=== PATIENT | female | born 1985 | race African-American/Black ===

== ENCOUNTER 2016-07-06 11:23 | Emergency (ER) | payer OTHER ==
[2016-07-06 11:31] VITALS: TEMP 97.7; BMI 20.9
[2016-07-06] MEDS ORDERED: ONDANSETRON 4 MG TABLET PO ONE (11:55)
[2016-07-06] MEDS ORDERED: IBUPROFEN 400 MG TABLET (FP) PO ONE ×2 (11:55→12:06)
[2016-07-06] MEDS ORDERED: SODIUM CHLORIDE 1,000 ML IV STA (11:57)
--- NOTE | 2016-07-06 11:57 | PDOC ---
History of Present Illness - General Chief Complaint: Syncope/Near Syncope Stated Complaint: NAUSEA, SYNCOPE, VOMITING Time Seen by Provider: 07/06/16 11:48 History Source: Patient - History of Present Illness Presenting Symptoms: Abdominal Pain, Nausea Timing/Duration: reports: intermittent Past History - Past Medical History Allergies/Adverse Reactions: Allergies Allergy/AdvReac Type Severity Reaction Status Date / Time amoxicillin [Amoxicillin] Allergy Verified 07/06/16 11:26 Penicillins Allergy Verified 07/06/16 11:26 Home Medications: Ambulatory Orders No Home Medications 0 dose .ROUTE UTDICT 10/31/13 Cardiac Disorders: Yes (syncope) Suicide Attempt (Hx): No - Surgical History Appendectomy: Yes - Psycho/Social/Smoking Cessation Hx Anxiety: No Suicidal Ideation: No Smoking Status: No Smoking History: Former smoker Have you smoked in the past 12 months: No Number of Cigarettes Smoked Daily: 0 Information on smoking cessation initiated: No Hx Alcohol Use: No Drug/Substance Use Hx: No Substance Use Type: None Review of Systems - Review of Systems Constitutional: No: Chills, Fever HEENTM: No: Blurred Vision Respiratory: No: Shortness of Breath Cardiac (ROS): Yes: Lightheadedness, Syncope. No: Chest Pain, Palpitations ABD/GI: Yes: Nausea, Abdominal cramping Neurological: Yes: Dizziness. No: Headache *Physical Exam - Vital Signs Last Vital Signs Temp Pulse Resp BP Pulse Ox 97.7 F 77 18 115/62 99 07/06/16 11:27 07/06/16 14:05 07/06/16 14:05 07/06/16 14:05 07/06/16 14:05 - Physical Exam Comments: 07/06/16 12:12 Appears mildly uncomfortable in ED General Appearance: Yes: Appropriately Dressed HEENT: positive: Normal Voice Neck: positive: Supple Respiratory/Chest: positive: Lungs Clear, Normal Breath Sounds. negative: Respiratory Distress Cardiovascular: positive: Regular Rate, S1, S2 Gastrointestinal/Abdominal: positive: Soft Integumentary: positive: Dry, Warm Neurologic: positive: Fully Oriented, Alert, Normal Mood/Affect, Motor Strength 5/5. negative: Facial Droop, Confused Heart Score/ECG Review - ECG Intrepretation Comment:: 07/06/16 13:17 Twelve-lead EKG was performed and reviewed by me. There is normal sinus rhythm with a normal rate. The axis is normal. The intervals are normal. There are no ST or T wave abnormalities. Impression: Normal twelve-lead EKG ED Treatment Course - LABORATORY CBC & Chemistry Diagram: 07/06/16 11:45 07/06/16 11:45 - ADDITIONAL ORDERS Additional order review: Laboratory Results 07/06/16 07/06/16 12:00 11:45 Sodium 142 Potassium 4.1 Chloride 108 H Carbon Dioxide 26 Anion Gap 8 BUN 10 D Creatinine 0.6 D Creat Clearance w eGFR > 60 Random Glucose 102 Calcium 8.3 L Total Bilirubin 0.4 AST 7 L D ALT 11 L D Alkaline Phosphatase 45 Total Protein 6.7 Albumin 3.7 Urine Color Yellow Urine Appearance Clear Urine pH 6.0 Ur Specific [place] 1.025 Urine Protein Negative Urine Glucose (UA) Negative Urine Ketones Negative Urine Blood 1+ H Urine Nitrite Negative Urine Bilirubin Negative Urine Urobilinogen 2.0 e.u/dl H Ur Leukocyte Esterase Negative Urine RBC 1 Urine WBC 1 Ur Epithelial Cells Rare Urine Bacteria Rare Hyaline Casts 11 Urine Mucus Many Urine HCG, Qual Negative 07/06/16 11:45 RBC 3.67 MCV 94.3 MCHC 32.6 RDW 13.6 MPV 8.4 Neutrophils % 66.7 D Lymphocytes % 23.7 D Monocytes % 6.8 Eosinophils % 2.1 D Basophils % 0.7 - RADIOLOGY Radiology Studies Ordered: Category Date Time Status HEAD CT WITHOUT CONTRAST [CT] Stat CT Scan 07/06/16 11:57 Completed FINGER(S) RIGHT [RAD] Stat Radiology 07/06/16 11:55 Completed - Medications Given in the ED: ED Medications Discontinued Medications Generic Name Dose Route Start Last Admin Trade Name Freq PRN Reason Stop Dose Admin Sodium Chloride 1,000 mls @ 1,000 mls/hr 07/06/16 11:57 07/06/16 12:19 Normal Saline - IV 07/06/16 12:56 1,000 mls/hr ASDIR STA Administration Ibuprofen 800 mg 07/06/16 11:55 07/06/16 12:19 Motrin - PO 07/06/16 11:56 800 mg ONCE ONE Administration Ondansetron HCl 4 mg 07/06/16 11:55 07/06/16 12:19 Zofran - PO 07/06/16 11:56 4 mg ONCE ONE Administration Medical Decision Making - Medical Decision Making 07/06/16 11:56 30-year-old female, endorses history of recurrent syncope, here with multiple syncopal episodes over the past 3 days. Patient states 3 days ago while home, she became dizzy and passed out and woke up on the floor. Did not not have any headache immediately after event but does report R 5th finger pain and swelling. States she stayed in bed all day yesterday and felt better, but this a.m. while standing outdoors, pt again became lightheaded and passed out and again awoke on the floor. States event this am was witnessed by bystanders and no seizure-like activities reported. 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 Pt states she noticed that symptoms occur usually around the time of her menses and states she suffers form very painful periods. Reports that menses came around 5am today and now complaining of her usual lower abdominal cramping and nausea. Pt denies vertigo, visual changes, slurred speech, [place] or focal weakness. No CP or SOB See exam Recurrent syncope Usually triggered by menses Seen in outside EDs No neuro/cards w/u in past Stable in ED w/ unremarkable exam ?vasovagal, r/o orthostasis, unlikely cardiogenic -ekg -labs -pain control -zofran 07/06/16 12:08 07/06/16 13:16 07/06/16 14:05 Labs/ekg/CT head unremarkable. Pt stable in ED. Case d/w ED attg and decision was made to admit to obs for cards and neuro w/u given no workup in past and multiple syncopal events in 3 days w/ injury 07/06/16 14:07 07/06/16 14:30 Patient refusing to be admitted. States she wants to sign out AGAINST MEDICAL ADVICE. Medical risks explained to patient, but still refusing admission. States she will walk into her PMDs office tomorrow. Patient understands that she can return at any point to continue evaluation. Given finger splint and orthopedic follow-up for finger fracture. Copy of labs also given to pt 07/06/16 14:37 *DC/Admit/Observation/Transfer Diagnosis at time of Disposition: Finger fracture, right Syncope Qualifiers: Syncope type: vasovagal syncope Qualified Code(s): R55 - Syncope and collapse - Discharge Dispostion Disposition: AGAINST MEDICAL ADVICE Condition at time of disposition: Stable - Referrals Referrals: Caren Goff [Other] Kishan Newman MD [Staff Physician] - - Patient Instructions Printed Discharge Instructions: DI for Syncope in Adults (Fainting), Finger Fracture Additional Instructions: Please follow-up with your PMD tomorrow. You can return to ER at any point to continue evaluation. Regarding her finger fracture. Keep splint in place take Motrin as needed and follow-up with orthopedic in 1-2 weeks
[2016-07-06] MEDS ORDERED: ONDANSETRON 4 MG/2 ML VIAL ONE (12:06)
[2016-07-06 12:29] LABS: BASOPHIL 0.7 % (0-2.0); EOSINOPHIL 2.1 % (0-4.5); MCH 30.7 pg (25.7-33.7); MCHC 32.6 g/dl (32.0-36.0); MEAN CELL VOLUME 94.3 fl (80-96); MEAN PLT VOLUME 8.4 fl (7.5-11.1); NEUTROPHILS 66.7 % (42.8-82.8); PLATELET COUNT 246 K/MM3 (134-434); RDW 13.6 % (11.6-15.6); WHITE BLOOD COUNT 6.5 K/mm3 (4.0-10.0)
[2016-07-06 12:36] LABS: URINE APPEARANCE CLEAR; URINE BILIRUBIN NEGATIVE (NEGATIVE); URINE COLOR YELLOW; URINE GLUCOSE (UA) NEGATIVE (NEGATIVE); URINE KETONE NEGATIVE (NEGATIVE); URINE LEUK ESTERASE NEGATIVE (NEGATIVE); URINE NITRITE NEGATIVE (NEGATIVE); URINE PROTEIN NEGATIVE (NEGATIVE); URINE UROBILINOGEN 2.0 E.U/dl E.U./dl (0.2-1.0)
[2016-07-06 12:37] LABS: URINE BLOOD 1+ (NEGATIVE)
[2016-07-06 12:41] LABS: ALBUMIN 3.7 g/dl (3.4-5.0); ALK PHOS 45 U/L (45-117); ANION GAP 8 (8-16); BILIRUBIN,TOTAL 0.4 mg/dL (0.2-1.0); CALCIUM 8.3 mg/dL (8.5-10.1); CO2 26 mmol/L (21-32); CREATININE 0.6 mg/dL (0.55-1.02); GLUCOSE,RANDOM 102 mg/dL (74-106); SGOT/AST 7 U/L (15-37); SGPT/ALT 11 U/L (12-78); TOT PROT 6.7 g/dl (6.4-8.2)
[2016-07-06 12:47] LABS: URINE BACTERIA RARE /hpf (NONE SEEN); URINE HYALINE CAST 11 /lpf; URINE MUCUS MANY; URINE RBC 1 /hpf (0-3); URINE WBC 1 /hpf (3-5)
[2016-07-06 14:06] VITALS: BP 115/62; PULSE 77
--- NOTE | 2016-07-06 14:42 | PDOC ---
*Physical Exam - Vital Signs Last Vital Signs Temp Pulse Resp BP Pulse Ox 97.7 F 77 18 115/62 99 07/06/16 11:27 07/06/16 14:05 07/06/16 14:05 07/06/16 14:05 07/06/16 14:05 ED Treatment Course - LABORATORY CBC & Chemistry Diagram: 07/06/16 11:45 07/06/16 11:45 - ADDITIONAL ORDERS Additional order review: Laboratory Results 07/06/16 07/06/16 12:00 11:45 Sodium 142 Potassium 4.1 Chloride 108 H Carbon Dioxide 26 Anion Gap 8 BUN 10 D Creatinine 0.6 D Creat Clearance w eGFR > 60 Random Glucose 102 Calcium 8.3 L Total Bilirubin 0.4 AST 7 L D ALT 11 L D Alkaline Phosphatase 45 Total Protein 6.7 Albumin 3.7 Urine Color Yellow Urine Appearance Clear Urine pH 6.0 Ur Specific [place] 1.025 Urine Protein Negative Urine Glucose (UA) Negative Urine Ketones Negative Urine Blood 1+ H Urine Nitrite Negative Urine Bilirubin Negative Urine Urobilinogen 2.0 e.u/dl H Ur Leukocyte Esterase Negative Urine RBC 1 Urine WBC 1 Ur Epithelial Cells Rare Urine Bacteria Rare Hyaline Casts 11 Urine Mucus Many Urine HCG, Qual Negative 07/06/16 11:45 RBC 3.67 MCV 94.3 MCHC 32.6 RDW 13.6 MPV 8.4 Neutrophils % 66.7 D Lymphocytes % 23.7 D Monocytes % 6.8 Eosinophils % 2.1 D Basophils % 0.7 - RADIOLOGY Radiology Studies Ordered: Category Date Time Status HEAD CT WITHOUT CONTRAST [CT] Stat CT Scan 07/06/16 11:57 Completed FINGER(S) RIGHT [RAD] Stat Radiology 07/06/16 11:55 Completed - Medications Given in the ED: ED Medications Discontinued Medications Generic Name Dose Route Start Last Admin Trade Name Freq PRN Reason Stop Dose Admin Sodium Chloride 1,000 mls @ 1,000 mls/hr 07/06/16 11:57 07/06/16 12:19 Normal Saline - IV 07/06/16 12:56 1,000 mls/hr ASDIR STA Administration Ibuprofen 800 mg 07/06/16 11:55 07/06/16 12:19 Motrin - PO 07/06/16 11:56 800 mg ONCE ONE Administration Ondansetron HCl 4 mg 07/06/16 11:55 07/06/16 12:19 Zofran - PO 07/06/16 11:56 4 mg ONCE ONE Administration *DC/Admit/Observation/Transfer Diagnosis at time of Disposition: Finger fracture, right Syncope Qualifiers: Syncope type: vasovagal syncope Qualified Code(s): R55 - Syncope and collapse - Discharge Dispostion Disposition: AGAINST MEDICAL ADVICE Condition at time of disposition: Stable - Referrals Referrals: Caren Goff [Other] Kishan Newman MD [Staff Physician] - - Patient Instructions Printed Discharge Instructions: DI for Syncope in Adults (Fainting), Finger Fracture Additional Instructions: Please follow-up with your PMD tomorrow. You can return to ER at any point to continue evaluation. Regarding her finger fracture. Keep splint in place take Motrin as needed and follow-up with orthopedic in 1-2 weeks - Post Discharge Activity Work/School Note: Back to School
--- NOTE | 2016-07-07 11:02 | EKG ---
Test Reason : Blood Pressure : / mmHG Vent. Rate : 065 BPM Atrial Rate : 065 BPM P-R Int : 134 ms QRS Dur : 078 ms QT Int : 376 ms P-R-T Axes : 034 002 029 degrees QTc Int : 391 ms NORMAL SINUS RHYTHM NORMAL ECG WHEN COMPARED WITH ECG OF 09-JUL-2011 05:34, VENT. RATE HAS DECREASED BY 45 BPM T WAVE VARIATION Confirmed by LUCY VAZQUEZ MD ([id number]) on 07/07/2016 11:02:19 AM Referred By: Confirmed By:LUCY VAZQUEZ MD
== END 2016-07-06 14:45 | disposition left against medical advice (07) ==
LOC: JER 11:23
PROC: 2W3JX1Z Immobilization of Right Finger using Splint (ICD-10-PCS; principal; 2016-07-06)
DX: R55 Syncope and collapse (principal); S62.636A Displaced fracture of distal phalanx of right little finger, initial encounter for closed fracture; W18.30XA Fall on same level, unspecified, initial encounter; Y93.9 Activity, unspecified; Y92.018 Other place in single-family (private) house as the place of occurrence of the external cause
CPT/HCPCS: 29130; 36415; 70450-TC; 73140-TC-RT; 80053; 81003; 81015; 84703; 85025; 93005; 93010; 99285-25

== ENCOUNTER 2016-09-06 21:03 | Emergency (ER) | payer OTHER ==
[2016-09-06 21:18] VITALS: BP 138/95; PULSE 74; TEMP 98.8; BMI 20.9
--- NOTE | 2016-09-06 21:27 | PDOC ---
History of Present Illness - General History Source: Patient Exam Limitations: No Limitations - History of Present Illness Initial Comments: 09/06/16 21:37 The patient is a 30 year old female, with no significant past medical history, who presents to the emergency department with complains of prolonged menstrual bleeding since August. The patient reports that she has recently taken 4 tests that all came back positive. The patient notes that she got her period on August 26 and the bleeding has been persistent since. She notes that the blood is brown in color. She states that her period is normally regular. She denies having any pain. Allergies: amoxicillin, penicillins Past surgical history: appendectomy Social history: Former smoker, social alcohol use <Moraima Fuentes - Last Filed: 09/06/16 21:37> <Jairon Nolan - Last Filed: 09/07/16 03:34> - General Chief Complaint: Vaginal Bleeding Stated Complaint: PROLONGED MENSTRUAL BLEEDING Time Seen by Provider: 09/06/16 21:27 Past History <Moraima Fuentes - Last Filed: 09/06/16 21:37> - Past Medical History Cardiac Disorders: Yes (syncope) Suicide Attempt (Hx): No - Surgical History Appendectomy: Yes - Reproductive History Is Patient Now?: Yes - Psycho/Social/Smoking Cessation Hx Anxiety: No Suicidal Ideation: No Smoking Status: No Smoking History: Former smoker Have you smoked in the past 12 months: No Number of Cigarettes Smoked Daily: 0 Information on smoking cessation initiated: No Hx Alcohol Use: Yes (SOCIAL) Drug/Substance Use Hx: No Substance Use Type: None <Jairon Nolan - Last Filed: 09/07/16 03:34> - Past Medical History Allergies/Adverse Reactions: Allergies Allergy/AdvReac Type Severity Reaction Status Date / Time amoxicillin [Amoxicillin] Allergy Verified 07/06/16 11:26 Penicillins Allergy Verified 07/06/16 11:26 Home Medications: Ambulatory Orders No Home Medications 0 dose .ROUTE UTDICT 10/31/13 Vit #108/Iron/FA [ One Tablet] 1 each PO DAILY #30 tablet 09/06 *Physical Exam - Vital Signs Last Vital Signs Temp Pulse Resp BP Pulse Ox 98.8 F 74 15 138/95 97 09/06/16 21:05 09/06/16 21:05 09/06/16 21:05 09/06/16 21:05 09/06/16 21:05 <Moraima Fuentes - Last Filed: 09/06/16 21:37> - Vital Signs Last Vital Signs Temp Pulse Resp BP Pulse Ox 98.8 F 74 15 138/95 97 09/06/16 21:05 09/06/16 21:05 09/06/16 21:05 09/06/16 21:05 09/06/16 21:05 - Physical Exam General Appearance: Yes: Nourished HEENT: positive: Normal Voice Respiratory/Chest: positive: Lungs Clear, Normal Breath Sounds Cardiovascular: positive: Regular Rate Female Pelvic Exam: positive: normal external exam, cervical os closed, normal size ovaries, other (scant bleeding from os). negative: adnexal tenderness, uterus Lymphatic: negative: Adenopathy Musculoskeletal: positive: Normal Inspection Extremity: positive: Normal Capillary Refill Integumentary: positive: Normal Color Neurologic: positive: Fully Oriented <Jairon Nolan - Last Filed: 09/07/16 03:34> ED Treatment Course - ADDITIONAL ORDERS Additional order review: Laboratory Results 09/06/16 21:21 Urine HCG, Qual Positive <Moraima Fuentes - Last Filed: 09/06/16 21:37> Medical Decision Making - Medical Decision Making 09/07/16 03:32 POCUS: endometrial stripe, CL cyst R ovary, no ff Blood type: O+ a/p early ectopic not ruled out but nothing on hx of pe suggests this has net repairer for fu PNV <Jairon Nolan - Last Filed: 09/07/16 03:34> *DC/Admit/Observation/Transfer - Attestations Scribe Attestion: 09/06/16 21:38 Documentation prepared by CHIOMA Yanes, acting as medical claims manager for Jairon Nolan MD. <Moraima Fuentes - Last Filed: 09/06/16 21:37> <Jairon Nolan - Last Filed: 09/07/16 03:34> Diagnosis at time of Disposition: Threatened miscarriage in early - Discharge Dispostion Disposition: HOME Condition at time of disposition: Good - Prescriptions Prescriptions: Vit #108/Iron/FA [ One Tablet] 1 each PO DAILY #30 tablet - Patient Instructions Printed Discharge Instructions: DI for Threatened Additional Instructions: follow up with your wage hand as soon as possible
== END 2016-09-06 22:02 | disposition home or self-care (01) ==
LOC: FER 21:03
DX: O20.0 Threatened abortion (principal); Z3A.00 Weeks of gestation of pregnancy not specified; Z87.891 Personal history of nicotine dependence
CPT/HCPCS: 84703; 86850; 86900; 86901; 99283-25

== ENCOUNTER 2016-09-11 23:24 | Emergency (ER) | payer OTHER ==
[2016-09-11 23:52] VITALS: BP 138/76; PULSE 77; TEMP 97.4; BMI 25.0
[2016-09-11 23:56] LABS: BASOPHIL 1.1 % (0-2.0); EOSINOPHIL 2.4 % (0-4.5); MCH 29.1 pg (25.7-33.7); MCHC 32.8 g/dl (32.0-36.0); MEAN CELL VOLUME 88.9 fl (80-96); MEAN PLT VOLUME 8.6 fl (7.5-11.1); NEUTROPHILS 49.3 % (42.8-82.8); PLATELET COUNT 252 K/MM3 (134-434); RDW 15.3 % (11.6-15.6); WHITE BLOOD COUNT 6.9 K/mm3 (4.0-10.0)
--- NOTE | 2016-09-11 23:58 | PDOC ---
History of Present Illness - History of Present Illness Initial Comments: 09/12/16 00:24 Patient is a 30 year old female with no significant medical hx who is presenting to the ED with persistent vaginal spotting since 08/27/16. The patient reports passing small amounts of clots over the past few weeks. She recently took a test that was found positive. Several days ago the patient was tested and found to have a beta hCG of 831 and upon repeat went down to 793. Patient also notes having irregular menses. The patient denies any other symptoms including abdominal pain, nausea, vomiting, fever, chills. She came to the ED for further evaluation of her spotting. Patient states she's been seen by multiple doctors, including a visit to [facility] on 09/06, for the same complaint. Allergies: amoxicillin, penicillins Past surgical history: appendectomy Social history: Former smoker, social alcohol use <Cindy Patterson - Last Filed: 09/12/16 02:06> - General History Source: Patient Exam Limitations: No Limitations <Arturo Nelson - Last Filed: 09/12/16 02:09> - General Stated Complaint: VAGINAL BLEEDING/CRAMPS Time Seen by Provider: 09/11/16 23:33 Past History <Cindy Patterson - Last Filed: 09/12/16 02:06> - Past Medical History Cardiac Disorders: Yes (syncope) Suicide Attempt (Hx): No - Surgical History Appendectomy: Yes - Psycho/Social/Smoking Cessation Hx Anxiety: No Suicidal Ideation: No Smoking Status: No Smoking History: Former smoker Have you smoked in the past 12 months: No Number of Cigarettes Smoked Daily: 0 Hx Alcohol Use: Yes (SOCIAL) Drug/Substance Use Hx: No Substance Use Type: None <Arturo Nelson - Last Filed: 09/12/16 02:09> - Past Medical History Allergies/Adverse Reactions: Allergies Allergy/AdvReac Type Severity Reaction Status Date / Time amoxicillin [Amoxicillin] Allergy Verified 09/11/16 23:50 Penicillins Allergy Verified 09/11/16 23:50 Home Medications: Ambulatory Orders Vit #108/Iron/FA [ One Tablet] 1 each PO DAILY #30 tablet 09/06 Review of Systems - Review of Systems Comments:: 09/12/16 00:33 GENERAL/CONSTITUTIONAL: No fever or chills. No weakness. HEAD, EYES, EARS, NOSE AND THROAT: No change in vision. No ear pain or discharge. No sore throat. CARDIOVASCULAR: No chest pain or shortness of breath. RESPIRATORY: No cough, wheezing, or hemoptysis. GASTROINTESTINAL: No nausea, vomiting, diarrhea or constipation. GENITOURINARY: Vaginal spotting. No dysuria, frequency, or change in urination. MUSCULOSKELETAL: No joint or muscle swelling or pain. No neck or back pain. SKIN: No rash NEUROLOGIC: No headache, vertigo, loss of consciousness, or change in strength/ sensation. <Cindy Patterson - Last Filed: 09/12/16 02:06> *Physical Exam - Vital Signs Last Vital Signs Temp Pulse Resp BP Pulse Ox 97.4 F L 77 18 138/76 100 09/11/16 23:51 09/11/16 23:51 09/11/16 23:51 09/11/16 23:51 09/11/16 23:51 - Physical Exam Comments: 09/12/16 00:34 GENERAL: Awake, alert, and fully oriented, in no acute distress HEAD: No signs of trauma EYES: PERRLA, EOMI, sclera anicteric, conjunctiva clear ENT: Auricles normal inspection, hearing grossly normal, nares patent, oropharynx clear without exudates. Moist mucosa NECK: Normal ROM, supple, no lymphadenopathy, JVD, or masses LUNGS: Breath sounds equal, clear to auscultation bilaterally. No wheezes, and no crackles HEART: Regular rate and rhythm, normal S1 and S2, no murmurs, rubs or gallops ABDOMEN: Soft, nontender, normoactive bowel sounds. No guarding, no rebound. No masses EXTREMITIES: Normal range of motion, no edema. No clubbing or cyanosis. No cords, erythema, or tenderness NEUROLOGICAL: Cranial nerves II through XII grossly intact. Normal speech, normal gait SKIN: Warm, Dry, normal turgor, no rashes or lesions noted. ENDOCRINE: No increased thirst. No abnormal weight change. HEMATOLOGIC/LYMPHATIC: No anemia, easy bleeding, or history of blood clots. ALLERGIC/IMMUNOLOGIC: No hives or skin allergy. <Cindy Patterson - Last Filed: 09/12/16 02:06> ED Treatment Course - LABORATORY CBC & Chemistry Diagram: 09/11/16 23:45 09/11/16 23:45 - ADDITIONAL ORDERS Additional order review: 09/11/16 23:45 RBC 4.01 MCV 88.9 MCHC 32.8 RDW 15.3 D MPV 8.6 Neutrophils % 49.3 D Lymphocytes % 36.8 D Monocytes % 10.4 H Eosinophils % 2.4 Basophils % 1.1 - RADIOLOGY Radiograph Interpretation: 09/12/16 02:06 Ortho Tech: (elyse) Report Date: 09/12/2016 00:39:00 Report Status: Preliminary Begin of Report Content Referring Physician: Arturo Nelson Patient Name: Vida Livingston THIS IS A PRELIMINARY REPORT FROM [facility] EXAM: Ultrasound first trimester and pelvic duplex IMAGES: 49 INDICATION: First trimester bleeding. ACG level DXL DATE OF SERVICE: 2016-09-12 00:39:52.0 COMPARISON: none FINDINGS: Ultrasound :Uterus is anteverted and measures 7.0centimeters in length. The endometrium is 3millimeters in thickness which is normal no identified. The right ovary measures 3.8centimeters in length, appears normal and demonstrates normal flow. Left ovary measures 3.4centimeters in length appears normal demonstrates normal flow. There is no significant free fluid. Pelvic duplex: There is normal arterial flow in both ovaries. IMPRESSION: Unremarkable exam without IUP identified. Differential diagnosis includes early normal , miscarriage or ectopic and followup sonography with correlation hCG levels is recommended. THIS DOCUMENT HAS BEEN ELECTRONICALLY SIGNED Micheal Soto MD 09/12/2016 02:02 EMBER Alcaraz Please call [facility] [phone] ([phone]) with questions. End of Report Content <Cindy Patterson - Last Filed: 09/12/16 02:06> - LABORATORY CBC & Chemistry Diagram: 09/11/16 23:45 09/11/16 23:45 - RADIOLOGY Radiology Studies Ordered: Category Date Time Status TRANSVAGINAL US PREG [US] Stat Ultrasound 09/11/16 23:46 Ordered <Arturo Nelson - Last Filed: 09/12/16 02:09> Medical Decision Making - Medical Decision Making 09/11/16 23:52 A portion of this note was documented by scribe services under my direction. I have reviewed the details of the note, within reason, and agree with the documentation with the following case summary and management plan written by me. Patient treated in the ED. Nursing notes are reviewed and incorporated into the medical decision-making. Vital signs reviewed. Peripheral IV access obtained by the nurse, laboratory studies are drawn and sent, reviewed and interpreted by myself. Vital Signs Temp Pulse Resp BP Pulse Ox 97.4 F L 77 18 138/76 100 09/11/16 23:51 09/11/16 23:51 09/11/16 23:51 09/11/16 23:51 09/11/16 23:51 30-year-old female with no medical history, irregular periods, presents with vaginal bleeding since August 27. The patient reports that she has been spotting. She was unclear if this was her irregular.. She had taken a test and she was positive. Patient was having vaginal spotting and was seen at [place] on September 06. She was discharged that time and has had subsequent visits were doctors. Patient several days ago had a beta hCG of 831 and repeat was 793. Patient came in because she is still persistently spotting. Denies any abdominal pain. Reports that a small amounts of clots. Will obtain a repeat beta hcg and transvaginal ultrasound and reassess. 09/12/16 01:39 CBC, BMP 09/11/16 23:45 09/11/16 23:45 CMP Sodium 141 mmol/L (136-145) 09/11/16 23:45 Potassium 4.1 mmol/L (3.5-5.1) 09/11/16 23:45 Chloride 103 mmol/L (98-107) 09/11/16 23:45 Carbon Dioxide 27 mmol/L (21-32) 09/11/16 23:45 Anion Gap 11 (8-16) 09/11/16 23:45 BUN 10 mg/dL (7-18) 09/11/16 23:45 Creatinine 0.7 mg/dL (0.55-1.02) 09/11/16 23:45 Creat Clearance w eGFR > 60 (>60) 09/11/16 23:45 Random Glucose 80 mg/dL (74-106) D 09/11/16 23:45 Calcium 8.7 mg/dL (8.5-10.1) 09/11/16 23:45 Total Bilirubin 0.5 mg/dL (0.2-1.0) D 09/11/16 23:45 AST 9 U/L (15-37) L D 09/11/16 23:45 ALT 15 U/L (12-78) D 09/11/16 23:45 Alkaline Phosphatase 50 U/L (45-117) 09/11/16 23:45 Total Protein 7.7 g/dl (6.4-8.2) 09/11/16 23:45 Albumin 4.1 g/dl (3.4-5.0) 09/11/16 23:45 Beta HCG, Quant 540.1 mIU/ml 09/11/16 23:45 The beta is downtrending. 09/12/16 01:39 Blood type is Rh positive. Pt is likely with miscarriage. 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 09/12/16 02:00 Pt reports that she had an ultrasound earlier this week (a 2nd one, that again that didn't show anything). She states that her ride is leaving and would like to call back for her results. I had informed her that she can follow up and call back tomorrow. Return precautions given including worsening bleed. Given that the bleeding has occurred since end of August, with a downtrending beta HCG, will allow her to go home and call back for the results. Likely discharge diagnosis: miscarriage. I discussed the physical exam findings, ancillary test results and final diagnoses with the patient. I answered all of the patient's questions. The patient was satisfied with the care received and felt comfortable with the discharge plan and treatment plan. The patient will call their primary care physician within 24 hours to arrange follow-up and will return to the Emergency Department with any new, persistant or worsening symptoms. 09/12/16 02:08 I was able to inform the patient of the results of the ultrasound. No identifiable of IUP (which we surmised) <Arturo Nelson - Last Filed: 09/12/16 02:09> *DC/Admit/Observation/Transfer - Attestations Scribe Attestion: 09/12/16 00:34 Documentation prepared by Cindy Patterson, acting as medical delivery technician for Arturo Nelson MD. <Cindy Patterson - Last Filed: 09/12/16 02:06> - Discharge Dispostion Admit: No <Arturo Nelson - Last Filed: 09/12/16 02:09> Diagnosis at time of Disposition: Miscarriage - Discharge Dispostion Disposition: HOME Condition at time of disposition: Stable - Referrals Referrals: Roselyn Parks MD [Staff Physician] - Franky London MD [Staff Physician] - Flo Escobar MD [Staff Physician] - - Patient Instructions Printed Discharge Instructions: DI for Vaginal Bleeding During Additional Instructions: Your beta HCG is 540 today. Please call back tomorrow for the results of your ultrasound. Call [phone] option 1. Please follow up with your thermal cutting machine operator doctor. If you have uncontrollable bleeding, please return to the ER for further evaluation.
[2016-09-12 00:26] LABS: ALBUMIN 4.1 g/dl (3.4-5.0); ANION GAP 11 (8-16); CALCIUM 8.7 mg/dL (8.5-10.1); CO2 27 mmol/L (21-32); COCKROFT - GAULT 128.5115; CREATININE 0.7 mg/dL (0.55-1.02); GLUCOSE,RANDOM 80 mg/dL (74-106); SGOT/AST 9 U/L (15-37); SGPT/ALT 15 U/L (12-78)
[2016-09-12 00:30] LABS: ALK PHOS 50 U/L (45-117); BILIRUBIN,TOTAL 0.5 mg/dL (0.2-1.0); TOT PROT 7.7 g/dl (6.4-8.2)
== END 2016-09-12 02:15 | disposition home or self-care (01) ==
LOC: JER 23:24
DX: O02.1 Missed abortion (principal); Z3A.01 Less than 8 weeks gestation of pregnancy
CPT/HCPCS: 36415; 76817-TC; 80053; 84702; 85025; 86850; 86900; 86901; 99282-25

== ENCOUNTER 2017-03-14 17:46 | Emergency (ER) | payer OTHER ==
[2017-03-14 17:51] VITALS: TEMP 97.6; BMI 20.9
--- NOTE | 2017-03-14 18:23 | PDOC ---
History of Present Illness - General Chief Complaint: Vaginal Bleeding Stated Complaint: VAGINAL BLEEDING Time Seen by Provider: 03/14/17 17:59 - History of Present Illness Initial Comments: 03/15/17 01:14 31F found on last admission 2 days ago, comes back with brown discharge and spotting and faint abdominal paint. last menstrual period 01/25/17. [id number]. Missed in August. On last visit only qualitative HcG was done. No other complaints Past History - Past Medical History Allergies/Adverse Reactions: Allergies Allergy/AdvReac Type Severity Reaction Status Date / Time amoxicillin [Amoxicillin] Allergy Verified 03/14/17 17:51 Penicillins Allergy Verified 03/14/17 17:51 Home Medications: Ambulatory Orders NK [No Known Home Medication] 03/14/17 Cardiac Disorders: Yes (Syncope with menstruation) COPD: No DVT: No Other medical history: denies - Surgical History Appendectomy: Yes - Reproductive History Spontaneous : 1 - Immunization History Immunization Up to Date: Yes - Suicide/Smoking/Psychosocial Hx Smoking Status: No Smoking History: Never smoked Have you smoked in the past 12 months: No Number of Cigarettes Smoked Daily: 0 If you are a former smoker, when did you quit?: 2MONTHS Information on smoking cessation initiated: No Hx Alcohol Use: No Drug/Substance Use Hx: No Substance Use Type: None Review of Systems - Review of Systems Constitutional: No: Symptoms Reported HEENTM: No: Symptoms Reported Respiratory: No: Symptoms reported Cardiac (ROS): No: Symptoms Reported ABD/GI: No: Symptoms Reported : No: Symptoms Reported Musculoskeletal: No: Symptoms Reported Integumentary: No: Symptoms Reported Neurological: No: Symptoms reported Endocrine: No: Symptoms Reported Hematologic/Lymphatic: No: Symptoms Reported All Other Systems: Reviewed and Negative *Physical Exam - Vital Signs Last Vital Signs Temp Pulse Resp BP Pulse Ox 97.6 F 74 18 126/69 100 03/14/17 17:48 03/14/17 17:48 03/14/17 17:48 03/14/17 17:48 03/14/17 17:48 - Physical Exam General Appearance: Yes: Nourished, Appropriately Dressed. No: Apparent Distress HEENT: positive: EOMI, ZACHERY, Normal ENT Inspection Neck: positive: Trachea midline, Normal Thyroid. negative: Tender Respiratory/Chest: positive: Lungs Clear, Normal Breath Sounds. negative: Chest Tender Cardiovascular: positive: Regular Rhythm, Regular Rate, S1, S2 Female Pelvic Exam: positive: normal external exam, cervical os closed, discharge (leukorrhea, no visible blood or products of conception) Gastrointestinal/Abdominal: positive: Normal Bowel Sounds, Flat, Soft. negative : Tender Musculoskeletal: positive: Normal Inspection Extremity: positive: Normal Capillary Refill Integumentary: positive: Normal Color, Dry, Warm Neurologic: positive: Fully Oriented, Alert, Normal Mood/Affect, Normal Response , Motor Strength 09/04 ED Treatment Course - LABORATORY CBC & Chemistry Diagram: 03/14/17 18:23 03/14/17 18:23 Medical Decision Making - Medical Decision Making 03/15/17 01:22 31F 7 weeks from last period, present with matthews discharge. beta hcg 906, on t/v u/s no sac or pole noticed in uterus or in ovaries. Cannot r/o very early or ectopic preg or complete . Patient told to come back in 48 hours to repeat labs and imaging. *DC/Admit/Observation/Transfer Diagnosis at time of Disposition: Threatened miscarriage in early - Discharge Dispostion Disposition: HOME Admit: No - Referrals - Patient Instructions Printed Discharge Instructions: DI for Threatened Additional Instructions: come back to ED in 48h to repeat labs and imaging. Come back for any new, worsening or concerning symptoms - Post Discharge Activity
[2017-03-14 18:58] LABS: BASOPHIL 0.6 % (0-2.0); EOSINOPHIL 0.6 % (0-4.5); MCH 29.9 pg (25.7-33.7); MCHC 33.4 g/dl (32.0-36.0); MEAN CELL VOLUME 89.6 fl (80-96); PLATELET COUNT 274 K/MM3 (134-434); RDW 14.5 % (11.6-15.6); WHITE BLOOD COUNT 9.4 K/mm3 (4.0-10.0)
[2017-03-14 19:00] LABS: URINE APPEARANCE SLCLOUDY; URINE BILIRUBIN NEGATIVE (NEGATIVE); URINE BLOOD NEGATIVE (NEGATIVE); URINE COLOR YELLOW; URINE GLUCOSE (UA) NEGATIVE (NEGATIVE); URINE KETONE 1+ (NEGATIVE); URINE NITRITE NEGATIVE (NEGATIVE); URINE PROTEIN NEGATIVE (NEGATIVE); URINE UROBILINOGEN NEGATIVE mg/dL (0.2-1.0)
--- NOTE | 2017-03-14 19:11 | PDOC ---
Attending Attestation - Resident Resident Name: Dash Jensen - ED Attending Attestation I have performed the following: I have examined & evaluated the patient, The case was reviewed & discussed with the resident, I agree w/resident's findings & plan, Exceptions are as noted - HPI HPI: 03/14/17 19:06 31 yo female who is preg and has c/o vaginal spotting . LMP 01/15/17 03/14/17 19:15 - Physicial Exam PE: 03/14/17 19:16 WNWD 31 yo p/w vaginal spotting, in no acute distress 03/14/17 21:37 Well-nourished, well-developed 31-year-old female with complaint of vaginal spotting. Head normocephalic/atraumatic. Eyes PERRLA, EOMI Neck is supple, no JVD. Lungs are clear to auscultation bilaterally CVS regular rate and rhythm S1, S2 no gallops no rubs. Abdomen nontender. No rebound or guarding. Pelvic the study by Dr. Jensen and did not reveal any vaginal clots and the Cervical os is closed Extremities no pain, edema Neuro alert and oriented 3 ambulating with ease. No gross focal neural deficits - Medical Decision Making 03/14/17 21:39 Beta-hCG was only 906 Pelvic ultrasound showed a thickened endometrial stripe. There was no intrauterine detected, there was no ovarian torsion, there is no free fluid in the pelvis. Impression threatened AB versus versus ectopic. Plan patient must return within 48 hours and have repeat beta hCG and pelvic ultrasound
[2017-03-14 19:37] LABS: ANION GAP 7 (8-16); BILIRUBIN,TOTAL 0.5 mg/dL (0.2-1.0); CALCIUM 8.7 mg/dL (8.5-10.1); CO2 26 mmol/L (21-32); CREATININE 0.5 mg/dL (0.55-1.02); GLUCOSE,RANDOM 87 mg/dL (74-106); SGOT/AST 8 U/L (15-37); SGPT/ALT 15 U/L (12-78); TOT PROT 7.2 g/dl (6.4-8.2)
[2017-03-14 19:40] LABS: ALK PHOS 42 U/L (45-117)
[2017-03-14 21:05] VITALS: BP 105/67; PULSE 76
[2017-03-14 22:18] LABS: URINE LEUK ESTERASE 2+ (NEGATIVE)
[2017-03-15 15:42] LABS: URINE RBC 0-3 /hpf (0-3)
== END 2017-03-14 21:59 | disposition home or self-care (01) ==
LOC: JER 17:46
DX: O26.891 Other specified pregnancy related conditions, first trimester (principal); O20.0 Threatened abortion; Z3A.01 Less than 8 weeks gestation of pregnancy
CPT/HCPCS: 36415; 76817-TC; 80053; 81003; 81015; 84702; 85025; 86850; 86900; 86901; 99283-25

== ENCOUNTER 2017-03-16 16:41 | Emergency (ER) | payer OTHER ==
--- NOTE | 2017-03-16 16:47 | PDOC ---
Rapid Medical Evaluation Chief Complaint: Revisit, Lab Variance Time Seen by Provider: 03/16/17 16:43 Medical Evaluation: Allergies Allergy/AdvReac Type Severity Reaction Status Date / Time amoxicillin [Amoxicillin] Allergy Verified 03/16/17 16:44 Penicillins Allergy Verified 03/16/17 16:44 03/16/17 16:44 I have performed a brief in-person evaluation of this patient. The patient presents with a chief complaint of: repeat hcg level and ultrasound Pertinent physical exam findings:vss, no abd pain I have ordered the following: beta hcg, ua, ucx, tv u/s The patient will proceed to the ED for further evaluation. 03/16/17 16:51
[2017-03-16 17:01] VITALS: BP 112/67; PULSE 72; TEMP 97.7; BMI 20.9
[2017-03-16 17:18] LABS: URINE APPEARANCE CLEAR; URINE BILIRUBIN NEGATIVE (NEGATIVE); URINE BLOOD NEGATIVE (NEGATIVE); URINE COLOR LTYELLOW; URINE GLUCOSE (UA) NEGATIVE (NEGATIVE); URINE KETONE NEGATIVE (NEGATIVE); URINE NITRITE NEGATIVE (NEGATIVE); URINE PROTEIN NEGATIVE (NEGATIVE); URINE UROBILINOGEN NEGATIVE mg/dL (0.2-1.0)
--- NOTE | 2017-03-16 18:39 | PDOC ---
History of Present Illness - General Chief Complaint: Revisit, Lab Variance Stated Complaint: REVISIT/BLOODWORK Time Seen by Provider: 03/16/17 16:43 History Source: Patient Exam Limitations: No Limitations - History of Present Illness Initial Comments: 03/16/17 18:38 31 yr female with c/o spotting for 3 days seen here 2 days ago told to come back for repeat beta HCG and US. pt denies cramping or pain no vaginal bleeding. Pt has history of miscarriage last August. Past History - Past Medical History Allergies/Adverse Reactions: Allergies Allergy/AdvReac Type Severity Reaction Status Date / Time amoxicillin [Amoxicillin] Allergy Verified 03/16/17 16:44 Penicillins Allergy Verified 03/16/17 16:44 Home Medications: Ambulatory Orders NK [No Known Home Medication] 03/14/17 Cardiac Disorders: Yes (Syncope with menstruation) COPD: No DVT: No - Surgical History Appendectomy: Yes - Reproductive History (#): 2 Para: 0 Spontaneous : 1 - Immunization History Immunization Up to Date: Yes - Suicide/Smoking/Psychosocial Hx Smoking Status: No Smoking History: Never smoked Have you smoked in the past 12 months: No Number of Cigarettes Smoked Daily: 0 If you are a former smoker, when did you quit?: 2MONTHS Information on smoking cessation initiated: No Hx Alcohol Use: No Drug/Substance Use Hx: No Substance Use Type: None Review of Systems - Review of Systems Able to Perform ROS?: Yes Is the patient limited Divehi proficient: No Constitutional: No: Symptoms Reported HEENTM: No: Symptoms Reported Respiratory: No: Symptoms reported Cardiac (ROS): No: Symptoms Reported ABD/GI: Yes: Symptoms Reported *Physical Exam - Vital Signs Last Vital Signs Temp Pulse Resp BP Pulse Ox 97.7 F 72 15 112/67 100 03/16/17 16:44 03/16/17 16:44 03/16/17 16:44 03/16/17 16:44 03/16/17 16:44 - Physical Exam General Appearance: Yes: Nourished, Appropriately Dressed HEENT: positive: EOMI, ZACHERY Respiratory/Chest: positive: Lungs Clear, Normal Breath Sounds Cardiovascular: positive: Regular Rhythm, Regular Rate Gastrointestinal/Abdominal: positive: Normal Bowel Sounds, Soft. negative: Tender Integumentary: positive: Normal Color Neurologic: positive: Fully Oriented, Alert, Normal Mood/Affect, Normal Response , Motor Strength 09/04 ED Treatment Course - ADDITIONAL ORDERS Additional order review: Laboratory Results 03/16/17 16:39 Urine Color Ltyellow Urine Appearance Clear Urine pH 6.0 Ur Specific [place] 1.013 Urine Protein Negative Urine Glucose (UA) Negative Urine Ketones Negative Urine Blood Negative Urine Nitrite Negative Urine Bilirubin Negative Urine Urobilinogen Negative Medical Decision Making - Medical Decision Making 03/16/17 18:43 cc: vaginal spotting, no abd pain or back pain pt here for repeat beta and US 03/16/17 20:12 return in 48hrs for follow up beta and US return sooner if any heavy bleeding, cramping or pain 03/16/17 20:15 US reviewed and the results discussed with who would like to to see pt in the ER. paged Dr.Khushilnai Lanza will see the pt in the ER fast track seen by CRM CONSULTANT in the ER would like pt to return in 48hrs for repeat beta and US pt aware of the plan and understands the follow up inst 03/16/17 20:26 03/16/17 20:55 *DC/Admit/Observation/Transfer Diagnosis at time of Disposition: test positive, Threatened in early - Discharge Dispostion Disposition: HOME Condition at time of disposition: Good - Referrals Referrals: Roselyn Parks MD [Staff Physician] - - Patient Instructions Additional Instructions: return in 48hrs for repeat Beta HCG and US return sooner if any cramping heavy bleeding or any other concerns - Post Discharge Activity Forms/Work/School Notes: Back to Work
[2017-03-16 19:41] LABS: URINE LEUK ESTERASE 1+ (NEGATIVE)
--- NOTE | 2017-03-16 21:04 | CON.OBG ---
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 sonogram done 03/16/17 thickened EM, no evidence of IUP, .In Rt adnexa echogenic density 1.6cm adjacent to rt ovary seen, suspicious of ectopic . History of Present Illness: Pt was seen in the ER to confirm pregn on 03/14/17 . BHCG on 03/14/17 was 906.3. . H/H was 12.6/37.6, Chemprofile wnl no c/o pain , or dizziness or fainting spells - History Source History Provided By: Patient Limitations to Obtaining History: No Limitations - Past Medical History Reproductive: Yes: Other (Past MH : 28-30 days cycle , regular, sometimes pain during period , once a year fainting spell. ) ...LMP: 02/17/17 ...: Yes ...: 2 ...Para: 0 (h/o sp ab 7 weeks 08/2016 ) Infectious Disease: No: STD's - Past Surgical History Past Surgical History: Yes: None - Alcohol/Substance Use Hx Alcohol Use: No History of Substance Use: reports: None - Smoking History Smoking history: Never smoked Have you smoked in the past 12 months: No Aproximately how many cigarettes per day: 0 If you are a former smoker, when did you quit?: 2MONTHS Home Medications - Allergies Allergies/Adverse Reactions: Allergies Allergy/AdvReac Type Severity Reaction Status Date / Time amoxicillin [Amoxicillin] Allergy Verified 03/16/17 16:44 Penicillins Allergy Verified 03/16/17 16:44 - Home Medications Home Medications: Ambulatory Orders NK [No Known Home Medication] 03/14/17 Physical Exam-COLOR BLENDER Vital Signs: Vital Signs Temperature 97.7 F 03/16/17 16:44 Pulse Rate 72 03/16/17 16:44 Respiratory Rate 15 03/16/17 16:44 Blood Pressure 112/67 03/16/17 16:44 O2 Sat by Pulse Oximetry (%) 100 03/16/17 16:44 Constitutional: Yes: Well Nourished, No Distress, Calm Gastrointestinal: Yes: WNL, Normal Bowel Sounds, Soft. No: Tenderness, Tenderness, Epigastrium, Tenderness, Rebound, Vomiting Renal/: Yes: External Genitalia: Yes: Normal, Bleeding Internal Exam Deferred: Yes Vaginal Exam: Yes: Bleeding (light bleeding fresh , not dark color) Cervix: Yes: Bleeding (minimal through os). No: Cerv Motion Tenderness Uterus: Yes: Normal, Anteverted, Firm. No: Tender Adnexa: Normal: Bilateral, Not Palpable: Bilateral (not tender ) Edema: No Labs: Laboratory Tests 03/14/17 03/14/17 03/16/17 18:23 18:23 16:39 Hgb 12.6 Hct 37.6 Plt Count 274 Sodium 139 Potassium 3.8 Chloride 106 BUN 9 Creatinine 0.5 L D Random Glucose 87 AST 8 L ALT 15 Beta HCG, Quant 906.3 1896.9 Problem List - Problems (1) Threatened miscarriage in early Code(s): O20.0 - THREATENED Assessment/Plan 31 yrs , 5.6 weeks gestation, hcg is doubled in 2 days [id number] to 1896 miu sono no iup noted , suspicious of ectopic . I discussed with patient, since normal doubling of harmone level has ocurred , even when us not in favor of IUP, one can wait since she is asymptomatic except bleeding vaginally. That will be expectant management to repeat BHCG in 48 hrs , with awareness of danger of ectopic pregn , possible rupture which can be dangerous . Another course will be to treat as Ectopic pregn since no iup seen , adnexal echogenic density is seen adjacent to Rt Ovary . rx Inj Methotrexate , it can avoid surgical intervention R/B/A of both courses told, pt prefers to wait give herself chance , will return to ER for BHCG f/u she is alerted to expect bleeding , pain cramps , sudden sarp pain , fainting spell return to ER immediately
[2017-03-16 21:57] LABS: URINE BACTERIA FEW /hpf (NEGATIVE); URINE RBC 0-2 /hpf (0-3)
== END 2017-03-16 21:18 | disposition home or self-care (01) ==
LOC: JER 16:41 → JERFT 16:41
DX: O20.0 Threatened abortion (principal); Z3A.01 Less than 8 weeks gestation of pregnancy
CPT/HCPCS: 36415; 76817-TC; 81003; 81015; 84702; 87086; 99281-25

== ENCOUNTER 2017-03-18 16:05 | Emergency (ER) | payer OTHER ==
--- NOTE | 2017-03-18 16:12 | PDOC ---
Rapid Medical Evaluation Time Seen by Provider: 03/18/17 16:07 Medical Evaluation: Allergies Allergy/AdvReac Type Severity Reaction Status Date / Time amoxicillin [Amoxicillin] Allergy Verified 03/18/17 16:08 Penicillins Allergy Verified 03/18/17 16:08 03/18/17 16:10 I have performed a brief in-person evaluation of this patient. The patient presents with a chief complaint of: "I need blood work." Pertinent physical exam findings: GEN: NAD I have ordered the following: CBC, BMP, Beta HCG, TVUS The patient will proceed to the ED for further evaluation. Discharge Disposition - Diagnosis Qualifiers: Weeks of gestation: less than 8 weeks Qualified Code(s): Z3A.01 - Less than 8 weeks gestation of - Referrals - Patient Instructions - Post Discharge Activity
[2017-03-18 16:13] VITALS: TEMP 97.5; BMI 20.9
[2017-03-18 16:32] LABS: BASOPHIL 0.5 % (0-2.0); EOSINOPHIL 0.5 % (0-4.5); MCH 29.9 pg (25.7-33.7); MCHC 33.2 g/dl (32.0-36.0); MEAN PLT VOLUME 8.4 fl (7.5-11.1); NEUTROPHILS 64.9 % (42.8-82.8); PLATELET COUNT 280 K/MM3 (134-434); RDW 14.7 % (11.6-15.6); WHITE BLOOD COUNT 8.6 K/mm3 (4.0-10.0)
--- NOTE | 2017-03-18 17:04 | PDOC ---
Attending Attestation - HPI HPI: 03/18/17 17:55 31 year old female , with no significant past medical history, who presents to the emergency room requesting blood work and was concerned she had an ectopic . She was recently seen in the ED on 03/16 and 03/18 and had ultrasounds that revealed a thickened endometrial stripe without evidence of intrauterine . - Physicial Exam PE: 03/18/17 17:55 Constitutional: Awake, alert, oriented. No acute distress. Head: Normocephalic. Atraumatic Eyes: PERRL. EOMI. Conjunctivae are not pale. ENT: Mucous membranes are moist and intact. Posterior pharynx without exudates or erythema. Uvula midline. Cardiovascular: Regular rate. Regular rhythm. S1, S2 regular. Distal pulses are 2+ and symmetric. Pulmonary/Chest: No evidence of respiratory distress. Clear to auscultation bilaterally No wheezing, rales or rhonchi. Abdominal: Soft and non-distended. There is no tenderness. No rebound, guarding or rigidity. No organomegaly. No palpable masses. Good bowel sounds. Back: No CVA tenderness. Musculoskeletal: No edema. No cyanosis. No clubbing. Full range of motion in all extremities. Nocalf tenderness. Radial/pedal pulses are intact and 2+ bilaterally Skin: Skin is warm and dry. No petechiae. No purpura. Neurological: Alert and oriented to person, place, and time. Cranial nerves II -XII are grossly intact. Normal speech. Strength is grossly symmetric. No sensory deficits. Psychiatric: Good eye contact. Normal interaction, affect and behavior. <Teri Sherman - Last Filed: 03/18/17 17:55> - Resident Resident Name: Kayleen Carey - ED Attending Attestation I have performed the following: I have examined & evaluated the patient, The case was reviewed & discussed with the resident, I agree w/resident's findings & plan, Exceptions are as noted - Medical Decision Making 03/18/17 17:04 I, Dr. Ghazal Antoine, DO, attest that this document has been prepared under my direction and personally reviewed by me in its entirety. I further attest, that it accurately reflects all work, treatment, procedures and medical decision -making performed by me. 11/16/17 21:22 a/p: 31yo female with poss ectopic vs threatened ab repeat labs, tv us will discuss results with DECISION SCIENCE ANALYST has appt with DECISION SCIENCE ANALYST for tomorrow 03/18/17 21:22 increasing beta, ultrasound shows R adnexal mass case discussed with OB - Dr. Austin - who recommends methotrexate for ectopic preg pt understands risks/benefits of methotrexate - was seen and discussed these options 2 days ago with OB 03/18/17 21:23 pt ambulatory. given precautions on why to return to the ED and reasons for follow up with DECISION SCIENCE ANALYST. <Ghazal Antoine - Last Filed: 03/18/17 21:24>
[2017-03-18 17:05] LABS: ANION GAP 11 (8-16); CALCIUM 8.6 mg/dL (8.5-10.1); CO2 23 mmol/L (21-32); CREATININE 0.6 mg/dL (0.55-1.02); GLUCOSE,RANDOM 95 mg/dL (74-106)
[2017-03-18 17:18] LABS: URINE APPEARANCE CLEAR; URINE BILIRUBIN NEGATIVE (NEGATIVE); URINE BLOOD 1+ (NEGATIVE); URINE COLOR LTYELLOW; URINE GLUCOSE (UA) NEGATIVE (NEGATIVE); URINE KETONE TRACE (NEGATIVE); URINE NITRITE NEGATIVE (NEGATIVE); URINE PROTEIN NEGATIVE (NEGATIVE); URINE UROBILINOGEN NEGATIVE mg/dL (0.2-1.0)
--- NOTE | 2017-03-18 17:18 | PDOC ---
History of Present Illness - General Chief Complaint: Vaginal Bleeding Stated Complaint: REVISIT/BLOODWORK Time Seen by Provider: 03/18/17 16:07 - History of Present Illness Initial Comments: 03/18/17 17:16 Patient is a 31 y.o. who presents for concern of ectopic . Patient has been evaluated at our facility on two prior occasions 03/14 (Beta HCG 906) and on 03/16 (Betac HCG 1896). On both evaluations TVUS showed no IUP with no endometrial stripe. Patient presents today as previously counseled for evaluation of her Beta HCG. Patient has a previously scheduled international bank manager appointment for tomorrow (02/16) which will be her first OB evaluation during this . Past History - Past Medical History Allergies/Adverse Reactions: Allergies Allergy/AdvReac Type Severity Reaction Status Date / Time amoxicillin [Amoxicillin] Allergy Verified 03/18/17 18:34 Penicillins Allergy Verified 03/18/17 18:34 Home Medications: Ambulatory Orders NK [No Known Home Medication] 03/14/17 Cardiac Disorders: Yes (Syncope with menstruation) COPD: No DVT: No - Surgical History Appendectomy: Yes - Reproductive History (#): 2 Para: 0 Spontaneous : 1 - Immunization History Immunization Up to Date: Yes - Suicide/Smoking/Psychosocial Hx Smoking Status: No Smoking History: Former smoker Have you smoked in the past 12 months: No Number of Cigarettes Smoked Daily: 0 If you are a former smoker, when did you quit?: 2MONTHS Information on smoking cessation initiated: No Hx Alcohol Use: No Drug/Substance Use Hx: No Substance Use Type: None Review of Systems - Review of Systems Constitutional: No: Chills, Fever Respiratory: No: Shortness of Breath Cardiac (ROS): No: Chest Pain ABD/GI: Yes: Constipated. No: Diarrhea, Nausea, Vomiting : Yes: See HPI All Other Systems: Reviewed and Negative *Physical Exam - Vital Signs Last Vital Signs Temp Pulse Resp BP Pulse Ox 97.5 F L 93 H 19 118/76 99 03/18/17 16:08 03/18/17 16:08 03/18/17 16:08 03/18/17 16:08 03/18/17 16:08 - Physical Exam General Appearance: Yes: Nourished, Appropriately Dressed Respiratory/Chest: positive: Lungs Clear, Normal Breath Sounds. negative: Labored Respiration, Rapid RR Cardiovascular: positive: S1, S2 Female Pelvic Exam: positive: normal external exam, cervical os closed, vaginal bleeding. negative: discharge Extremity: positive: Normal Capillary Refill Integumentary: positive: Normal Color, Dry, Warm Neurologic: positive: Fully Oriented, Alert ED Treatment Course - LABORATORY CBC & Chemistry Diagram: 03/18/17 17:25 03/18/17 16:15 - ADDITIONAL ORDERS Additional order review: 03/18/17 16:15 RBC 4.16 MCV 90.0 MCHC 33.2 RDW 14.7 MPV 8.4 Neutrophils % 64.9 Lymphocytes % 28.3 D Monocytes % 5.8 Eosinophils % 0.5 Basophils % 0.5 Medical Decision Making - Medical Decision Making 03/21/17 10:08 Patient is a 31 y.o. female who presents with concern of ectopic . Beta HCG today 2312, increased from prior visits. Case d/w Dr. Cardenas (international bank manager) who suggests methotrextrate with close follow-up. Patient given OTD of Methotrexate counseled extensively on importance of international bank manager follow up for repeat Beta HCG given return precautions and discharged home. *DC/Admit/Observation/Transfer Diagnosis at time of Disposition: Ectopic - Discharge Dispostion Disposition: HOME Condition at time of disposition: Fair Admit: No - Referrals Referrals: Franky London MD [Staff Physician] - - Patient Instructions Additional Instructions: Please keep your previously scheduled appointment with your international bank manager tomorrow. Please take the copies of your labs and ultrasound. You must have a repeat B- HCG in 3 days. If you can't see your international bank manager then please make an appointment with Dr. Cardenas (contact information included). It is imperative you are seen in three days time for a repeat B-HCG. Please return to the Emergency Department for any worsening or concerning symptoms. - Post Discharge Activity Forms/Work/School Notes: Back to Work
[2017-03-18 17:23] LABS: URINE RBC 1; URINE WBC 1
[2017-03-18 17:33] LABS: MCH 30.4 pg (25.7-33.7); MCHC 33.3 g/dl (32.0-36.0); MEAN CELL VOLUME 91.1 fl (80-96); MEAN PLT VOLUME 8.2 fl (7.5-11.1); PLATELET COUNT 277 K/MM3 (134-434); RDW 14.6 % (11.6-15.6); WHITE BLOOD COUNT 7.9 K/mm3 (4.0-10.0)
[2017-03-18 20:29] VITALS: BP 111/78; PULSE 67
[2017-03-18] MEDS ORDERED: METHOTREXATE SODIUM/PF 25 MG/ML VIAL IM ONE ×3 (20:29→21:00)
[2017-03-18 22:11] LABS: URINE LEUK ESTERASE 1+ (NEGATIVE)
== END 2017-03-18 21:22 | disposition home or self-care (01) ==
LOC: JER 16:05
PROC: 3E023GC Introduction of Other Therapeutic Substance into Muscle, Percutaneous Approach (ICD-10-PCS; principal; 2017-03-18)
DX: O00.80 Other ectopic pregnancy without intrauterine pregnancy (principal); Z3A.01 Less than 8 weeks gestation of pregnancy
CPT/HCPCS: 36415; 76817-TC; 80048; 81003; 81015; 84702; 85025; 85027; 99283-25; J9260

== ENCOUNTER 2017-03-26 21:16 | Inpatient (IN) | payer OTHER ==
--- NOTE | 2017-03-26 21:33 | PDOC ---
Rapid Medical Evaluation Time Seen by Provider: 03/26/17 21:30 Medical Evaluation: Allergies Allergy/AdvReac Type Severity Reaction Status Date / Time amoxicillin [Amoxicillin] Allergy Verified 03/26/17 21:29 Penicillins Allergy Verified 03/26/17 21:29 03/26/17 21:30 I have performed a brief in-person evaluation of this patient. The patient presents with a chief complaint of: pelvic pain dx with ectopic preg on 03/18/2017 beta was 2312.5 03/18/2017 was give methotrexate on 03/18/2017 Pertinent physical exam findings: pelvic pain on I have ordered the following; beta quant The patient will proceed to the ED for further evaluation:
[2017-03-26 21:34] VITALS: BMI 20.9
[2017-03-26] MEDS ORDERED: ONDANSETRON 4 MG TABLET PO ONE (22:31)
[2017-03-26] MEDS ORDERED: SODIUM CHLORIDE 1,000 ML IV STA (22:31)
--- NOTE | 2017-03-26 22:32 | PDOC ---
History of Present Illness <Darshan Churchill - Last Filed: 03/27/17 01:29> - History of Present Illness Initial Comments: 03/26/17 22:26 31 yo F with h/o appendectomy and recent ectopic confirmed on U/S s/p Methotrexate ( 03/18) who presents with pelvic/abdominal pain. Patient reports onset of stable, crampy, severe, sharp, shooting lower abdominal and pelvic pain this AM. Pain worse with movement and slightly improved with supine positioning. Endorses vaginal bleeding beginning (03/16)Visualized clotting in toilet today. Endorses mild lightheadedness. Denies fevers/chills, diarrhea, constipation, BRBPR hematuria, chest pain, SOB. LMP 02/10/17. Denies h/o STI's, and currently sexually active with one sexual partner. Dr. Fraga [facility]. Last Interval Transvaginal U/S (03/18) reveals presence of tubal ectopic with increased size in comparison to previous U/S ( 03/14 and 03/16) <Chris Ríos - Last Filed: 04/01/17 17:56> - General Chief Complaint: Pain, Acute Stated Complaint: PAIN Time Seen by Provider: 03/26/17 21:30 Past History <Darshan Churchill - Last Filed: 03/27/17 01:29> - Past Medical History Cardiac Disorders: Yes (Syncope with menstruation) COPD: No DVT: No - Surgical History Appendectomy: Yes - Reproductive History (#): 2 Para: 0 Spontaneous : 1 - Immunization History Immunization Up to Date: Yes - Suicide/Smoking/Psychosocial Hx Smoking Status: No Smoking History: Never smoked Have you smoked in the past 12 months: No Number of Cigarettes Smoked Daily: 0 If you are a former smoker, when did you quit?: 2MONTHS Hx Alcohol Use: No Drug/Substance Use Hx: No Substance Use Type: None <Chris Ríos - Last Filed: 04/01/17 17:56> - Past Medical History Allergies/Adverse Reactions: Allergies Allergy/AdvReac Type Severity Reaction Status Date / Time amoxicillin [Amoxicillin] Allergy Verified 03/26/17 21:29 Penicillins Allergy Verified 03/26/17 21:29 Home Medications: Ambulatory Orders NK [No Known Home Medication] 03/14/17 Review of Systems - Review of Systems Comments:: 03/26/17 22:36 GENERAL/CONSTITUTIONAL: No fever or chills. No weakness. HEAD, EYES, EARS, NOSE AND THROAT: No change in vision. No ear pain or discharge. No sore throat.- CARDIOVASCULAR: No chest pain or shortness of breath RESPIRATORY: No cough, wheezing, or hemoptysis. GASTROINTESTINAL: No nausea, vomiting, diarrhea or constipation. GENITOURINARY: + abdominal and pelvic pain. No dysuria, frequency, or change in urination. MUSCULOSKELETAL: No joint or muscle swelling or pain. No neck or back pain. SKIN: No rash NEUROLOGIC: No headache, vertigo, loss of consciousness, or change in strength/ sensation. ENDOCRINE: No increased thirst. No abnormal weight change HEMATOLOGIC/LYMPHATIC: No anemia, easy bleeding, or history of blood clots. ALLERGIC/IMMUNOLOGIC: No hives or skin allergy. <Chris Ríos - Last Filed: 04/01/17 17:56> *Physical Exam - Vital Signs Last Vital Signs Temp Pulse Resp BP Pulse Ox 97.7 F 81 18 102/70 100 03/26/17 21:30 03/26/17 21:30 03/26/17 21:30 03/26/17 21:30 03/26/17 21:30 <Darshan Churchill - Last Filed: 03/27/17 01:29> - Vital Signs Last Vital Signs Temp Pulse Resp BP Pulse Ox 97.7 F 81 18 102/70 100 03/26/17 21:30 03/26/17 21:30 03/26/17 21:30 03/26/17 21:30 03/26/17 21:30 - Physical Exam Comments: 03/26/17 22:38 GENERAL: Awake, alert, and fully oriented, in no acute distress HEAD: No signs of trauma, normocephalic, atraumatic EYES: PERRLA, EOMI, sclera anicteric, conjunctiva clear ENT: Hearing grossly normal, nares patent, oropharynx clear without exudates. Moist mucosa NECK: Normal ROM, no JVD, or masses LUNGS: No distress, speaks full sentences, clear to auscultation bilaterally HEART: Regular rate and rhythm, normal S1 and S2, no murmurs, rubs or gallops, peripheral pulses normal and equal bilaterally. ABDOMEN: Soft, + lower abdominal ttp, normoactive bowel sounds. No guarding, no rigidity, no rebound. No masses. No CVA ttp, and suprapubic ttp. Pelvic: Pelvic exam with active clotting and bleeding in vagina.cervical os appears to be closed. No cervical motion tenderness on bimanual exam. EXTREMITIES : Normal inspection, Normal range of motion, no edema. No clubbing or cyanosis. SKIN: Warm, Dry, normal turgor, no rashes or lesions noted. <Chris Ríos - Last Filed: 04/01/17 17:56> ED Treatment Course - LABORATORY CBC & Chemistry Diagram: 03/26/17 23:00 03/26/17 23:00 - ADDITIONAL ORDERS Additional order review: Laboratory Results 03/26/17 03/26/17 03/26/17 23:00 23:00 23:00 WBC 10.8 H D RBC 4.16 Hgb 12.8 Hct 38.1 MCV 91.5 MCH 30.9 MCHC 33.7 RDW 14.5 Plt Count 245 MPV 8.9 Neutrophils % 64.9 Lymphocytes % 28.3 Monocytes % 5.5 Eosinophils % 0.9 Basophils % 0.4 Sodium 139 Potassium 3.6 Chloride 105 Carbon Dioxide 26 Anion Gap 8 BUN 10 D Creatinine 0.7 Creat Clearance w eGFR > 60 Random Glucose 90 Calcium 8.6 Total Bilirubin 0.4 AST 7 L ALT 17 Alkaline Phosphatase 47 Total Protein 7.7 Albumin 4.2 Beta HCG, Quant Urine Color Urine Appearance Urine pH Ur Specific [place] Urine Protein Urine Glucose (UA) Urine Ketones Urine Blood Urine Nitrite Urine Bilirubin Urine Urobilinogen Blood Type O POSITIVE Antibody Screen Negative 03/26/17 03/26/17 22:59 21:35 WBC RBC Hgb Hct MCV MCH MCHC RDW Plt Count MPV Neutrophils % Lymphocytes % Monocytes % Eosinophils % Basophils % Sodium Potassium Chloride Carbon Dioxide Anion Gap BUN Creatinine Creat Clearance w eGFR Random Glucose Calcium Total Bilirubin AST ALT Alkaline Phosphatase Total Protein Albumin Beta HCG, Quant 2787.6 Urine Color Yellow Urine Appearance Slcloudy Urine pH 5.0 Ur Specific [place] 1.030 Urine Protein 1+ H Urine Glucose (UA) Negative Urine Ketones 2+ H Urine Blood 3+ H Urine Nitrite Negative Urine Bilirubin Negative Urine Urobilinogen 2.0 H Blood Type Antibody Screen 03/26/17 23:00 RBC 4.16 MCV 91.5 MCHC 33.7 RDW 14.5 MPV 8.9 Neutrophils % 64.9 Lymphocytes % 28.3 Monocytes % 5.5 Eosinophils % 0.9 Basophils % 0.4 - Medications Given in the ED: ED Medications Discontinued Medications Generic Name Dose Route Start Last Admin Trade Name Neha PRN Reason Stop Dose Admin Sodium Chloride 1,000 mls @ 1,000 mls/hr 03/26/17 22:31 03/26/17 23:01 Normal Saline - IV 03/26/17 23:30 1,000 mls/hr ASDIR STA Administration Ondansetron HCl 4 mg 03/26/17 22:31 03/26/17 23:02 Zofran - PO 03/26/17 22:32 4 mg ONCE ONE Administration <Darshan Churchill - Last Filed: 03/27/17 01:29> - LABORATORY CBC & Chemistry Diagram: 03/26/17 23:00 03/26/17 23:00 <Chris Ríos - Last Filed: 04/01/17 17:56> Medical Decision Making - Medical Decision Making 03/26/17 22:39 31 yo F with h/o appendectomy and recent ectopic 6w2d confirmed on U/S s/p Methotrexate (03/18) who presents with stable, crampy, severe, sharp, shooting lower abdominal and pelvic pain this AM. Pain worse with movement and slightly improved with supine positioning. Endorses vaginal bleeding beginning ( 03/16) with visualized clotting in toilet this AM. Endorses mild lightheadedness. Denies fevers/chills, diarrhea, constipation, BRBPR hematuria, chest pain, SOB. LMP 02/10/17. Physical exam reveals diffuse lower abdominal ttp , with BP 102/60. Pelvic exam with active vaginal bleeding and clotting visualized through cervix. Cervical os appears closed. Last Interval Transvaginal U/S (03/18) reveals presence of tubal ectopic with increased size in comparison to previous U/S ( 03/14 and 03/16). Will order basic labs and BHCG to assess state of ectopic . ED Course: CBC, CMP, Lipase, UA, BHCG NS 1 L, Zofran 03/26/17 23:36 HC 04/01/17 17:55 U/S with tubal ectopic. Admitted to Dr. Cardenas. <Chris Ríos - Last Filed: 04/01/17 17:56> *DC/Admit/Observation/Transfer - Discharge Dispostion Admit: Yes <Darshan Churchill - Last Filed: 03/27/17 01:29> <Chris Ríos - Last Filed: 04/01/17 17:56> Diagnosis at time of Disposition: Ectopic Qualifiers: Location of ectopic : tubal Intrauterine status: without intrauterine Laterality: right Qualified Code(s): O00.101 - Right tubal without intrauterine - Discharge Dispostion Disposition: AGAINST MEDICAL ADVICE Condition at time of disposition: Stable
[2017-03-26] MEDS ORDERED: ONDANSETRON *ODT* 4 MG TABLET ONE (22:48)
--- NOTE | 2017-03-26 23:41 | PDOC ---
Attending Attestation - Resident Resident Name: Royal Ríosson - ED Attending Attestation I have performed the following: I have examined & evaluated the patient, The case was reviewed & discussed with the resident, I agree w/resident's findings & plan, Exceptions are as noted - HPI HPI: 03/26/17 23:40 31y F hx of diagnosed ectopic s/p methotrexate (visualized on US), presents with lower abdminal pain, vaginal bleeding, started since this morning. abd exam noted for mild rlq tenderness no rebound/gurading pt appears in no distress otherwise beta increasing to 2800 from 03/18 - concerning concerned for ruptured ectopic will obtain US and d/w vp care management - Physicial Exam PE: 03/27/17 03:37 see above - Medical Decision Making 03/27/17 01:[address] lugo agrees pt will need to be admitted for failed outpatient mangement of ectopic waiting formal US results will admit to dr. peña service Case discussed in detail with admitting physician including history, physical exam and ancillary studies. Admitting physician has assumed care for the patient, will follow all pending diagnostics and will complete the evaluation and treatment. 03/27/17 02:13 us consistent with tubal ectopic small amt of free fluid
[2017-03-26 23:57] LABS: BASOPHIL 0.4 % (0-2.0); EOSINOPHIL 0.9 % (0-4.5); MCH 30.9 pg (25.7-33.7); MCHC 33.7 g/dl (32.0-36.0); MEAN CELL VOLUME 91.5 fl (80-96); MEAN PLT VOLUME 8.9 fl (7.5-11.1); NEUTROPHILS 64.9 % (42.8-82.8); PLATELET COUNT 245 K/MM3 (134-434); RDW 14.5 % (11.6-15.6); WHITE BLOOD COUNT 10.8 K/mm3 (4.0-10.0)
[2017-03-27 00:27] LABS: ALBUMIN 4.2 g/dl (3.4-5.0); ANION GAP 8 (8-16); CALCIUM 8.6 mg/dL (8.5-10.1); CO2 26 mmol/L (21-32); CREATININE 0.7 mg/dL (0.55-1.02); GLUCOSE,RANDOM 90 mg/dL (74-106); SGOT/AST 7 U/L (15-37); SGPT/ALT 17 U/L (12-78)
[2017-03-27 00:28] LABS: ALK PHOS 47 U/L (45-117); BILIRUBIN,TOTAL 0.4 mg/dL (0.2-1.0); TOT PROT 7.7 g/dl (6.4-8.2)
[2017-03-27 01:28] LABS: URINE APPEARANCE SLCLOUDY; URINE BILIRUBIN NEGATIVE (NEGATIVE); URINE BLOOD 3+ (NEGATIVE); URINE COLOR YELLOW; URINE GLUCOSE (UA) NEGATIVE (NEGATIVE); URINE KETONE 2+ (NEGATIVE); URINE NITRITE NEGATIVE (NEGATIVE); URINE PROTEIN 1+ (NEGATIVE)
[2017-03-27 01:40] LABS: URINE HYALINE CAST 5 /lpf; URINE MUCUS MANY; URINE RBC 787 /hpf (0-3); URINE WBC 14 /hpf (3-5)
[2017-03-27] MEDS ORDERED: BUTORPHANOL TARTRATE 1 MG/ML VIAL IM PRN (02:53)
[2017-03-27] MEDS ORDERED: DEXTROSE 5%-LACTATED RINGERS 1,000 ML IV SCH (03:00)
[2017-03-27 09:49] VITALS: BP 119/51; PULSE 69; TEMP 97.9
[2017-03-27 11:42] LABS: URINE LEUK ESTERASE Negative (NEGATIVE)
--- NOTE | 2017-03-28 08:56 | HP ---
Past Medical History - Primary Care Physician PCP:: Franky London (History and physical done on 03/27/17 10 am) - Admission Chief Complaint: pelvic pain, vaginal bleeding. r/o RT tubal ectopic History of Present Illness: 31 yo f , 4TH visit to er for ft tubal ectopic , txed with methtrexate 03/18/17 , with no decline in HCG , today return with low abdominal pain, crampy pain and vaginal bleed, admitted for laparoscopy. possible salpingostomy , possible salpingectomy, ulternatives discussed , re treatment with methatrexate discussed , but in view it did not work previous;ly and symptomatic with pain was not advised History Source: Patient Limitations to Obtaining History: No Limitations - Past Medical History ...Induced : 1 ...Multiple Gestation: 1 - Past Surgical History Past Surgical History: Yes: None Hx Myomectomy: No Hx Transabdominal Cerclage: No - Smoking History Smoking history: Never smoked Have you smoked in the past 12 months: No Aproximately how many cigarettes per day: 0 If you are a former smoker, when did you quit?: 2MONTHS - Alcohol/Substance Use Hx Alcohol Use: No History of Substance Use: reports: None - Social History Usual Living Arrangement: Yes: With Spouse Home Medications - Allergies Allergies/Adverse Reactions: Allergies Allergy/AdvReac Type Severity Reaction Status Date / Time amoxicillin [Amoxicillin] Allergy Verified 03/26/17 21:29 Penicillins Allergy Verified 03/26/17 21:29 - Home Medications Home Medications: Ambulatory Orders NK [No Known Home Medication] 03/14/17 Review of Systems - Review of Systems Constitutional: reports: No Symptoms Eyes: reports: No Symptoms HENT: reports: No Symptoms Neck: reports: No Symptoms Cardiovascular: reports: No Symptoms Respiratory: reports: No Symptoms Gastrointestinal: reports: Abdominal Pain Genitourinary: reports: Vaginal Bleeding Breasts: reports: No Symptoms Reported Musculoskeletal: reports: No Symptoms Integumentary: reports: No Symptoms Neurological: reports: No Symptoms Endocrine: reports: No Symptoms Hematology/Lymphatic: reports: No Symptoms Psychiatric: reports: No Symptoms Physical Exam-[employer] WORK[employer] Vital Signs: Vital Signs Temperature 97.9 F 03/27/17 09:46 Pulse Rate 69 03/27/17 09:46 Respiratory Rate 18 03/27/17 09:46 Blood Pressure 119/51 03/27/17 09:46 O2 Sat by Pulse Oximetry (%) 100 03/27/17 03:00 pe was done by ER physician Constitutional: Yes: Well Nourished Eyes: Yes: WNL HENT: Yes: WNL Neck: Yes: WNL Cardiovascular: Yes: WNL Respiratory: Yes: WNL Gastrointestinal: Yes: WNL (tender suprapubic area) Edema: No Labs: CBC, BMP 03/26/17 23:00 03/26/17 23:00 Problem List - Problem (1) Right tubal Code(s): O00.101 - RIGHT TUBAL WITHOUT INTRAUTERINE Qualifiers: Intrauterine status: without intrauterine Qualified Code(s): O00.101 - Right tubal without intrauterine Assessment/Plan advised laparoscopy, salpingostomy, possible salpingectomy, risks discussed, risks of infection, bleeding, injury to surrounding tissue , infertility, anesthesia risks and post op complication discussed
== END 2017-03-27 10:57 | disposition left against medical advice (07) | DRG 566 ==
LOC: JER 21:16 → JERBED 03-27 01:30 → J3W 03-27 02:35
PROVIDERS: ADMIT Obstetrics & Gynecology; ATTEND Obstetrics & Gynecology
DX: O00.101 Right tubal pregnancy without intrauterine pregnancy (principal); R10.2 Pelvic and perineal pain
CPT/HCPCS: 36415; 76817-TC; 80053; 81003; 81015; 84702; 85025; 86850; 86900; 86901; 99282-25

== ENCOUNTER 2017-09-15 20:14 | Emergency (ER) | payer OTHER ==
--- NOTE | 2017-09-15 20:23 | PDOC ---
History of Present Illness - General History Source: Patient Exam Limitations: No Limitations - History of Present Illness Initial Comments: 09/15/17 21:19 The patient is a 31 year old female with a significant PMH of ectopic and migraines who presents to the emergency department with an acute migraine. The patient reports that she has gotten migraines like this in the past . she states that her migraine starts on the left front side of her head and radiates to the front center. She states. The patient reports that she fainted prior to arrival to ED secondary to severe menstrual cramps. She states that she started her menstrual cycle on wednesday. She reports associated back pain with her cramps. The patient states that she has been experiencing a sore throat as well. The patient denies any other symptoms. She denies any fever, chills, nausea, vomit, diarrhea ,constipation or urinary symptoms..She denies chest pain , shortness of breath, headache and dizziness. The patient denies any other complaints PAST MEDICAL HISTORY: migraines, ectopic PAST SURGICAL HISTORY: no significant history FAMILY HISTORY: no pertinent history SOCIAL HISTORY: Pt lives with family and is employed. MEDICATIONS: reviewed ALLERGIES: As per nursing notes General: No fevers or chills, no weakness, no weight loss HEENT: (+)sore throat,No change in vision. No ear pain CardioVascular: No chest pain or shortness of breath Respiratory:No cough, or wheezing. Gastrointestinal: (+)menstrual pain no nausea, vomiting, diarrhea or constipation, No rectal bleeding Genitourinary: No dysuria, hematuria, or frequency Musculoskeletal: No joint or muscle pain or swelling Neurologic: (+)migraine headache .No vertigo, dizziness or loss of consciousness Psychiatric: nor depression Skin: No rashes or easy bruising Endocrine: no increased thirst or abnormal weight change Allergic: no skin or latex allergy All other systems reviewed and normal General: Well-nourished well-developed individual, no acute distress HEENT: Throat: Normal, tonsils normal, no erythema or exudate Neck: Supple, no meningeal signs, no lymphadenopathy Eyes::Pupils equal reactive and round, extraocular motion intact Chest: Nontender to palpation Cardiac: S1-S2 normal, regular rate and rhythm, no murmurs rubs or gallops Respiratory: Lungs clear to auscultation bilateral Abdomen: (+)tenderness across lower abdomen, slightly increased bowel sounds. Soft, nondistended, Extremities: Warm, dry, no cyanosis, clubbing, or edema Skin: No rashes Neuro: Alert and oriented x3, nonfocal exam, grossly intact, normal gait Psych: Normal mood and affect <Tanvir Menezes - Last Filed: 09/15/17 21:19> - General History Source: Patient Exam Limitations: No Limitations - History of Present Illness Initial Comments: A portion of this note was documented by scribe services under my direction. I have reviewed the details of the note, within reason, and agree with the documentation. The case summary and management plan written by me. 09/15/17 21:21 Assessment and plan: This is a 31-year-old female who comes in complaining of menstrual cramps pain. Patient had a near syncope events secondary to the pain. Patient has history of vasovagal syncope and near syncope event with severe menstrual cramps in the past. Patient is also complaining of her typical migraine. Patient said it is left-sided and throbbing associated with some nausea but no vomiting or photophobia. Patient has not taken anything for the migraine or the menstrual cramps. Medical decision making We will hydrate patient and give her some Reglan and Toradol for the migraine cramps. Will rule out ectopic and with a beta hCG Well reassess 21:30 Patient feels much better post a liter of fluid and some Reglan Patient discharged home will follow-up with her OB and primary care doctor. <Anushka Brock I - Last Filed: 09/15/17 21:44> - General Chief Complaint: Migraine Headache Stated Complaint: MIGRAINEHEADACHE Time Seen by Provider: 09/15/17 20:19 Past History <Tanvir Menezes - Last Filed: 09/15/17 21:19> - Past Medical History Cardiac Disorders: Yes (Syncope with menstruation) COPD: No DVT: No - Surgical History Appendectomy: Yes - Reproductive History (#): 2 Para: 0 Spontaneous : 1 - Immunization History Immunization Up to Date: Yes - Suicide/Smoking/Psychosocial Hx Smoking Status: No Smoking History: Never smoked Have you smoked in the past 12 months: No Number of Cigarettes Smoked Daily: 0 If you are a former smoker, when did you quit?: 2MONTHS Hx Alcohol Use: No Drug/Substance Use Hx: No Substance Use Type: None <Anushka Brock I - Last Filed: 09/15/17 21:44> - Past Medical History Allergies/Adverse Reactions: Allergies Allergy/AdvReac Type Severity Reaction Status Date / Time Penicillins Allergy Mild Verified 09/15/17 20:38 amoxicillin [Amoxicillin] Allergy Verified 09/15/17 20:38 Home Medications: Ambulatory Orders NK [No Known Home Medication] 09/15/17 Neuro Specific PMHX - Complaint Specific PMHX Migraine: Yes <Anushka Brock I - Last Filed: 09/15/17 21:44> *Physical Exam - Vital Signs Last Vital Signs Temp Pulse Resp BP Pulse Ox 98.7 F 92 H 16 112/85 100 09/15/17 20:15 09/15/17 20:15 09/15/17 20:15 09/15/17 20:15 09/15/17 20:15 <Tanvir Menezes - Last Filed: 09/15/17 21:19> ED Treatment Course - ADDITIONAL ORDERS Additional order review: Laboratory Results 09/15/17 20:54 Urine HCG, Qual Negative - Medications Given in the ED: ED Medications Discontinued Medications Generic Name Dose Route Start Last Admin Trade Name Neha PRN Reason Stop Dose Admin Metoclopramide HCl 10 mg 09/15/17 20:58 09/15/17 20:59 Reglan Injection - IVPUSH 09/15/17 20:59 10 mg ONCE ONE Administration <Tanvir Menezes - Last Filed: 09/15/17 21:19> *DC/Admit/Observation/Transfer - Attestations Scribe Attestion: 09/15/17 21:19 Documentation prepared by Tanvir Menezes, acting as medical sales specialist for Anushka Brock MD. <Tanvir Menezes - Last Filed: 09/15/17 21:19> - Discharge Dispostion Decision to Admit order: No <Anushka Brock I - Last Filed: 09/15/17 21:44> Diagnosis at time of Disposition: Dysmenorrhea Migraine Qualifiers: Migraine type: unspecified Status migrainosus presence: without status migrainosus Intractability: not intractable Qualified Code(s): G43.909 - Migraine, unspecified, not intractable, without status migrainosus - Discharge Dispostion Disposition: HOME Condition at time of disposition: Stable - Patient Instructions Additional Instructions: Return to the emergency department immediately with ANY new, persistent or worsening symptoms. Continue any medications as previously prescribed by your physician. You should follow up with your primary doctor as soon as possible regarding today's emergency department visit. . Please make sure your doctor reviews the results of your emergency evaluation. Thank you for coming to the Emergency Department today for your care. It was a pleasure to see you today. Please note that your evaluation is INCOMPLETE until you follow-up with your doctor.
[2017-09-15 20:34] VITALS: TEMP 98.7; BMI 20.9
[2017-09-15] MEDS ORDERED: METOCLOPRAMIDE HCL INJECTION 10 MG/2 ML VIAL IVPUSH ONE (20:58)
[2017-09-15] MEDS ORDERED: SODIUM CHLORIDE 1,000 ML IV ONE (20:58)
[2017-09-15] MEDS ORDERED: KETOROLAC TROMETHAMINE 30 MG/1 ML VIAL IVPUSH ONE (21:17)
[2017-09-15 21:47] VITALS: BP 109/78; PULSE 74
== END 2017-09-15 21:53 | disposition home or self-care (01) ==
LOC: FER 20:14
PROC: 3E033GC Introduction of Other Therapeutic Substance into Peripheral Vein, Percutaneous Approach (ICD-10-PCS; principal; 2017-09-15)
PROC: 3E0337Z Introduction of Electrolytic and Water Balance Substance into Peripheral Vein, Percutaneous Approach (ICD-10-PCS; 2017-09-15)
DX: N94.6 Dysmenorrhea, unspecified (principal); G43.909 Migraine, unspecified, not intractable, without status migrainosus
CPT/HCPCS: 84703; 96361; 96374; 99283-25; J7030